=== PATIENT | female | born 1980 | race Caucasian/White ===

== ENCOUNTER 2016-07-28 10:55 | Emergency (ER) | payer OTHER ==
[~2016-07-28] VITALS: Ht 154.9 cm; Wt 81.4 kg
[~2016-07-28 10:55] MED LIST: ADVIL200 MG PO; BACTRIM,SEPT1 TABLE1 PO; COLACE100 MG PO; NAPROSYN500 MG PO; ULTRAM50 MG PO; ZANTAC150 MG PO; ZOFRAN ODT4 MG PO
[2016-07-28] MEDS ORDERED: KEFLEX500 MG PO (14:09)
[2016-07-28 14:22] VITALS: BP 122/71
== END 2016-07-28 14:23 | disposition home or self-care (01) ==
LOC: EME 10:55 → EXP 10:55
PROC: 0HDRXZZ Extraction of Toe Nail, External Approach (ICD-10-PCS; principal; 2016-07-28)
DX: S91.202A Unspecified open wound of left great toe with damage to nail, initial encounter (principal); W18.43XA Slipping, tripping and stumbling without falling due to stepping from one level to another, initial encounter; B35.1 Tinea unguium; Z87.891 Personal history of nicotine dependence
CPT/HCPCS: 73660; 99281; 99283

== ENCOUNTER 2017-02-11 11:23 | Emergency (ER) | payer OTHER ==
[~2017-02-11] VITALS: Ht 154.9 cm; Wt 77.3 kg
[~2017-02-11 11:23] MED LIST changes: +KEFLEX500 MG PO
[2017-02-11] MEDS ORDERED: MOTRIN600 MG PO (13:19)
[2017-02-11] MEDS ORDERED: FLEXERIL5 MG PO (13:19)
[2017-02-11 13:59] VITALS: BP 105/64
== END 2017-02-11 14:01 | disposition home or self-care (01) ==
LOC: EME 11:23
DX: M54.5 Low back pain (principal)
CPT/HCPCS: 99281; 99284; J1100